=== PATIENT | male | born 1955 | race Caucasian/White ===

== ENCOUNTER 2018-02-10 15:00 | Outpatient (CLI) | payer BC ==
[~2018-02-10] VITALS: Ht 190.5 cm; Wt 122.5 kg
== END 2018-02-10 15:17 ==
LOC: PREOP 15:00
PROVIDERS: ATTEND Internal Medicine
DX: Z01.818 Encounter for other preprocedural examination (principal); Z86.010 Personal history of colon polyps

== ENCOUNTER 2018-02-14 08:15 | Day surgery (SDC) | payer BC ==
--- NOTE | 2018-02-04 12:35 | HISTORY AND PHYSICAL ---
DATE OF SERVICE: 02/14/2018 COLONOSCOPY HISTORY AND PHYSICAL REFERRING PHYSICIAN: Jorje Perez DO. ADDENDUM: DATE OF OFFICE CONSULTATION: 02/03/2018 HISTORY OF PRESENT ILLNESS: The patient is a 62-year-old white male, referred for surveillance colonoscopy. He has a past history of adenomatous colonic polyps and on his last colonoscopy in 05/2013, he had one tubular adenoma removed from the sigmoid colon. Five years previous to that, he had a villous adenoma removed from the ileocecal valve and has had several other tubular adenomas removed. He is deemed to be of higher than average risk as mother was diagnosed with colon cancer in her 70s and had two cousins also diagnosed with colon cancer in their 60s and 70s. He reports that he did have an episode roughly three weeks ago after a fatty meal dining out, where he noted bilateral upper quadrant abdominal discomfort with significant distention and constipation. He denied back radiation of pain. He ultimately had to utilize magnesium citrate to get results after about 3 days. He denied the passage of initial hard stool and had slow resolution of his abdominal discomforts. He has noted no blood in the stool bright red or melanotic. He denied jaundice or orange-colored urine. PAST MEDICAL HISTORY: Otherwise noncontributory. MEDICATIONS: He takes p.r.n. indomethacin for intermittent arthritis and is on no regular medication. FAMILY HISTORY: Other than the aforementioned colon cancer, is also notable for cholecystitis in his father, who actually succumbed to complications of the disease at the age of 89. Dad also had a history of coronary artery disease, underwent bypass surgery reportedly around age 63. SOCIAL HISTORY: He is employed, with adult children. He denies past smoking with a history of social alcohol intake. PAST SURGICAL HISTORY: He has had no past abdominal surgeries or joint replacement. PHYSICAL EXAMINATION: GENERAL: Reveals a pleasant overweight white male, in no acute distress at 298 pounds. His weight is up 13 pounds from 04/2013. VITAL SIGNS: Blood pressure 142/70, heart rate 72 and regular. HEENT: Unremarkable. Sclerae nonicteric. NECK: Revealed no JVD, adenopathy or bruits. CHEST: Clear. CARDIOVASCULAR: Regular rate and rhythm without murmur, S3 or S4. ABDOMEN: Soft, supple without mass, organomegaly or tenderness. Bowel sounds are positive in all four quadrants. No bruits are noted. EXTREMITIES: Reveal no cyanosis, clubbing or edema. ASSESSMENT AND PLAN: 1. Due to family history of colon cancer and past history of adenomatous colonic polyps, he was set up for surveillance colonoscopy on 02/14/2018. Prep instructions with the Wilhelm-prep kit were given and questions were answered. 2. Episode of abdominal pain with distention and bowel habit change. We discussed well as symptoms are classic for cholecystitis, he does have several risk factors. Advised cutting back on fast food, portion control and if he has another episode to return to Dr. Perez and discuss further workup consideration for abdominal sonogram and blood testing around the time of the attack. I thank you for the referral of this pleasant gentleman. Job ID: [id number] DocumentID: [id number] Dictated Date: 02/04/2018 12:11:27 Economic Developer Date: 02/04/2018 12:35:21 Dictated By: RENUKA JOHNS MD MTDD
[~2018-02-14] VITALS: Ht 190.5 cm; Wt 122.5 kg
[2018-02-14] MEDS ORDERED: D5 LR IV SOLUTION 1,000 ML IV STA (08:29)
[2018-02-14] MEDS ORDERED: MIDAZOLAM 2 MG/2 ML (VERSED) VIAL IVP PRN (08:30)
[2018-02-14] MEDS ORDERED: D5 LR IV SOLUTION 1,000 ML IV ONE (08:40)
[2018-02-14 08:50] VITALS: BP 130/84
[2018-02-14] MEDS ORDERED: LIDOCAINE JELLY 2% (XYLOCAINE) 5 ML TUBE ONE (10:20)
[2018-02-14] MEDS ORDERED: fentaNYL INJECTION 100 MCG/2 ML AMP ONE (10:21)
[2018-02-14] MEDS ORDERED: MIDAZOLAM 2 MG/2 ML (VERSED) VIAL ONE ×3 (10:21)
--- NOTE | 2018-02-14 10:30 | Pre-Op Note & Conscious Sedat ---
Pre-Operative Progress Note H&P Reviewed The H&P was reviewed, patient examined and no changes noted. Date H&P Reviewed: Feb 14, 2018 Time H&P Reviewed: 10:27 Conscious Sedation Pre-Proced ASA Class: 2 Airway Mallampati Classification: ([place] appropriate class) I. II. III, IV Lungs Heart ASA score ASA 1: a normal healthy patient ASA 2: a patient with a mild systemic disease (mid diabetes, controlled hypertension, obesity ASA 3: a patient with a severe systemic disease that limits activity (angina , COPD, prior Myocardial infarction) ASA 4: a patient with an incapacitating disease that is a constant threat to life (CHF, renal failure) ASA 5: a moribund patient not expected to survive 24 hrs. (ruptured aneurysm) ASA 6: a declared brain patient whose organs are being harvested. For emergent operations, add the letter E after the classification Grade 2 Sedation Plan: Analgesia, Amnesia, Plan communicated to team members, Discussed options with patient/fam, Discussed risks with patient/fam Note The patient is an appropriate candidate to undergo the planned procedure, sedation, and anesthesia. The patient immediately re-assessed prior to indication. RENUKA JOHNS MD Feb 14, 2018 10:30
[2018-02-14] MEDS: fentaNYL INJECTION 100 MCG/2 ML AMP IVP PRN ×2 (10:31→10:35)
[2018-02-14 11:20] VITALS: BP 138/86
[2018-02-14 11:50] VITALS: BP 132/81
[2018-02-14 12:07] VITALS: BP 132/81
--- NOTE | 2018-02-14 15:08 | OPERATIVE REPORT ---
DATE OF SERVICE: 02/14/2018 COLONOSCOPY INDICATION FOR THE PROCEDURE: Screening colon, past history of colonic polyps. DESCRIPTION OF PROCEDURE: The patient was placed in left lateral decubitus position. Digital rectal evaluation was performed. Anal sphincter tone was normal and the perianal reflex was intact. The prostate is anodular, mildly enlarged in size and nontender on digital inspection. No abnormalities with additional inspection of anal canal or distal rectal vault. The colonoscope was then inserted into the rectum under direct visualization advanced to the cecum. The cecum was identified by identification of the ileocecal valve and cecal strap. Photographic documentation was obtained. Careful inspection was made as colonoscope was withdrawn. FINDINGS: No evidence for internal or external hemorrhoids and the rectum was unremarkable. One diminutive proximal sigmoid polyp was noted. It was photographed and biopsied and ablated with no subsequent blood loss. No evidence for diverticular disease was noted. The descending colon was unremarkable. Present in the distal transverse colon was a diminutive 3 mm sessile polyp. It was photographed and biopsied and ablated with no subsequent blood loss. The remainder of the transverse colon, hepatic flexure, ascending colon and cecum were unremarkable. ASSESSMENT: 1. Digital rectal evaluation was compatible with mild benign prostatic hypertrophy. 2. Two diminutive sessile polyps were removed today via hot forceps with cauterization. One present in the proximal sigmoid and the other present in the distal transverse colon. As long as there are no surprise on histopathology report, I would advocate consideration for repeat screening colonoscopy in 5 years. I thank you for the referral of this pleasant gentleman. Job ID: [id number] DocumentID: [id number] Dictated Date: 02/14/2018 12:28:31 Nuclear Medicine Tech Date: 02/14/2018 15:07:34 Dictated By: RENUKA JOHNS MD [facility]
--- OUTSIDE RECORDS SUMMARY | 2018-02-16 06:59 | XMS REPORT | Continuity of Care Document ---
Author Author [facility] Organization [facility] Address Unknown Phone Unavailable Allergies Active Description Code Type Severity Reaction Onset Reported/Identified Relationship to Patient Clinical Status Yes No Known Drug Allergies [id number] Drug Allergy Unknown N/A 05/15/2013 Medications There is no data. Problems Date Dx Coded Attending Type Code Diagnosis Diagnosed By 05/15/2013 RENUKA JOHNS MD Ot 211.3 BENIGN NEOPLASM LG BOWEL 05/15/2013 RENUKA JOHNS MD Ot V12.72 PERSONAL HISTORY OF COLONIC POLYPS 05/15/2013 RENUKA JOHNS MD Ot V76.51 SCREEN MAL NEOP-COLON 02/12/2018 RENUKA JOHNS MD Ot Z01.818 ENCOUNTER FOR OTHER PREPROCEDURAL EXAMIN 02/12/2018 RENUKA JOHNS MD Ot Z86.010 PERSONAL HISTORY OF COLONIC POLYPS Procedures There is no data. Results There is no data. Encounters ACCT No. Visit Date/Time Discharge Status Pt. Type Provider Facility Loc./Unit Complaint [id number] 02/14/2018 08:15:00 02/14/2018 12:07:00 DIS Outpatient RENUKA JOHNS MD [facility] ENDO HX COLON POLYPS/ABD PAIN. [id number] 02/10/2018 15:00:00 02/10/2018 15:17:00 DIS Outpatient RENUKA JOHNS MD [facility] PREOP COLONOSCOPY [id number] 05/15/2013 07:02:00 05/15/2013 10:15:00 DIS Outpatient RENUKA JOHNS MD [facility] HISTORY OF POLYPS [id number] 05/13/2013 07:32:00 05/13/2013 23:59:59 CLS Outpatient
== END 2018-02-14 12:07 | disposition home or self-care (01) ==
LOC: ENDO 08:15
PROVIDERS: ATTEND Internal Medicine
DX: Z12.11 Encounter for screening for malignant neoplasm of colon (principal); K63.5 Polyp of colon; Z86.010 Personal history of colon polyps; Z80.0 Family history of malignant neoplasm of digestive organs
CPT/HCPCS: 88305

== ENCOUNTER 2023-06-10 09:48 | Outpatient (CLI) | payer BC ==
[~2023-06-10] VITALS: Ht 193 cm; Wt 141.0 kg
== END 2023-06-10 12:46 | disposition home or self-care (01) ==
LOC: PREOP 09:48
PROVIDERS: ATTEND Internal Medicine
DX: Z01.818 Encounter for other preprocedural examination (principal)

== ENCOUNTER 2023-06-14 09:01 | Day surgery (SDC) | payer BC ==
--- NOTE | 2023-06-11 09:03 | HISTORY AND PHYSICAL ---
COLONOSCOPY HISTORY AND PHYSICAL HISTORY OF PRESENT ILLNESS: The patient is a 67-year-old white male referred by Dr. Perez for surveillance colonoscopy due to past history of colon polyps. It has been a little over 5 years since his last colonoscopy, at which time he had hyperplastic polyp removed from the distal transverse colon and proximal sigmoid. He had no evidence for diverticular disease at that time. He reports that other than a left total knee replacement for osteoarthritis in January of this year, there have been no changes in his health history. In regards to further past medical history, he is being followed for an ascending aortic aneurysm, measured early this year at 4.3 cm and stable without significant aortic insufficiency. He is taking no medication currently. FAMILY HISTORY: Mother at the age of 89, complications of obesity and had osteoarthritis. Dad at the age of 89 with a form of bile blockage, he did not believe that it was related to pancreatic cancer. No family history for colon cancer. PAST SURGICAL HISTORY: Significant for joint replacement of the left knee in January. He is on the schedule for right total knee replacement in early July. SOCIAL HISTORY: He is employed, with adult children. No past smoking history and social alcohol consumption history. PHYSICAL EXAMINATION: GENERAL: Reveals pleasant, overweight white male in no acute distress. VITAL SIGNS: Weight 310 pounds, up 12 pounds from his last office visit, little over 5 years ago. Blood pressure 130/84. HEENT: Unremarkable. Mallampati 3 oropharyngeal configuration. CHEST: Clear to auscultation. CARDIOVASCULAR: Reveals regular rate and rhythm without murmur, S3, or S4. ABDOMEN: Soft, supple without mass, organomegaly, or tenderness. EXTREMITIES: Reveal no cyanosis, clubbing or edema. Well-healed left total knee replacement scar. ASSESSMENT AND PLAN: The patient is being set up for surveillance colonoscopy due to past history of colon polyps. His body habitus and oropharyngeal configuration put him at risk for sleep apnea. We will be monitoring for this during the sedation part of the procedure. Prep instructions were given and questions were answered. The patient requested the procedure be done at [facility] where he had previous colonoscopy is also important that we get this done prior to his knee replacement. I was unable to get him scheduled at [place] until mid-July, after his scheduled knee replacement. I thank you for the referral of this pleasant gentleman. Job ID: [id number] DocumentID: [id number] Dictated Date: 06/06/2023 16:56:04 Developer Evangelist Date: 06/06/2023 17:40:00 Dictated By: RENUKA JOHNS MD MTDD
[~2023-06-14] VITALS: Ht 193 cm; Wt 141.0 kg
[2023-06-14] MEDS ORDERED: LACTATED RINGERS 1,000 ML IV STA (09:09)
--- NOTE | 2023-06-14 09:27 | Pre-Op Note & Conscious Sedat ---
Pre-Operative Progress Note Date H&P Reviewed: Jun 14, 2023 Time H&P Reviewed: 09:26 History & Physical: H&P Reviewed, Patient Examed, No changes noted Pre-Op Diagnosis: Hx of colon polyps Moderate Sedation PreProcedure ASA Score 2 Airway Lungs Heart ASA score ASA 1: a normal healthy patient ASA 2: a patient with a mild systemic disease (mid diabetes, controlled hypertension, obesity ASA 3: a patient with a severe systemic disease that limits activity (angina, COPD, prior Myocardial infarction) ASA 4: a patient with an incapacitating disease that is a constant threat to life (CHF, renal failure) ASA 5: a moribund patient not expected to survive 24 hrs. (ruptured aneurysm) ASA 6: a declared brain- patient whose organs are being harvested. For emergent operations, add the letter E after the classification Mallampati Classification Grade 2 Sedation Plan Analgesia, Amnesia, Plan communicated to team members, Discussed options with patient/fam, Discussed risks with patient/fam The patient is an appropriate candidate to undergo the planned procedure, sedation, and anesthesia. The patient immediately re-assessed prior to indication. RENUKA JOHNS MD Jun 14, 2023 09:27
[2023-06-14 09:28] VITALS: BP 141/85
[2023-06-14] MEDS ORDERED: PROPOFOL INJECTION 0 ML IV ONE (09:53)
[2023-06-14] MEDS ORDERED: PROPOFOL INJECTION 50 ML IV ONE (10:10)
[2023-06-14] MEDS ORDERED: proPOfol 200 MG/20 ML (DIPRIVAN) VIAL IV ONE (10:23)
--- NOTE | 2023-06-14 10:37 | Anesthesia-General Post-Op ---
MAC Patient Condition Mental Status/LOC: Same as Preop Cardiovascular: Satisfactory Nausea/Vomiting: Absent Respiratory: Satisfactory Pain: Controlled Complications: Absent Post Op Complications Complications None Follow Up Care/Instructions Patient Instructions None needed. Anesthesiology Discharge Order Discharge Order Patient is doing well, no complaints, stable vital signs, no apparent adverse anesthesia problems. No complications reported per nursing. EDELMIRA CRUZ CRNA Jun 14, 2023 10:37
[2023-06-14 10:40] VITALS: BP 122/86
[2023-06-14 10:45] VITALS: BP 127/89
[2023-06-14 11:15] VITALS: BP 127/89
--- NOTE | 2023-06-14 11:28 | Progress Note-Post Operative ---
Post-Procedure Note Physician (s)/Emergency Room Clerk (s) Physician RENUKA JOHNS MD Pre-Procedure Diagnosis Pre-Procedure Diagnosis: Hx of colon polyps Post-Procedure Diagnosis Post-operative diagnosis: Prior to undergoing colonoscopy digital rectal evaluation was performed. Anal sphincter tone was normal and the perianal reflexes intact. Prostate was unremarkable on digital inspection as well as the anal canal and distal rectal vault. The colonoscope was then inserted into the rectum and under direct visualization advanced to the cecum. The cecum was identified by the indication of the ileocecal valve and cecal strap. Photographic documentation was obtained. A careful inspection was made as the colonoscope was withdrawn. Quality the prep was good. Findings: There are no evidence for internal or external hemorrhoids and the rectum was unremarkable. The patient does have a perianal papilloma without evidence for trauma. The sigmoid colon revealed 1 small diverticulum without evidence of diverticulitis. The the descending colon was unremarkable. Present in the distal transverse colon were 2 adjacent 4 mm sessile hyperplastic appearing polyps were biopsied and ablated with no blood loss. A similar polyp was noted in the mid transverse colon which was biopsied and ablated as well. An adenomatous appearing 4 mm polyp was noted on the upper lip of the ileocecal valve it was photographed and biopsied and ablated with no subsequent blood loss. The cecum was unremarkable. A/P 1. 4 polyps were removed today as noted above small in 4 to 5 mm range. As long as there are no surprises on histopathology report would advocate consideration for repeat surveillance colonoscopy in 5 years. 2. Patient did have obstructive breathing requiring an oral airway on his side would expect obstruction to be even worse had he been on his back. Would advocate sleep study to evaluate for underlying obstructive sleep apnea. I thank you for the furl this pleasant gentleman sincerely Renuka Johns MD, FACP. CC: Dr. Jorje Perez DO. RENUKA JOHNS MD Jun 14, 2023 11:28
[2023-06-14 11:40] VITALS: BP 127/89
== END 2023-06-14 11:40 | disposition home or self-care (01) ==
LOC: ENDO 09:01
PROVIDERS: ATTEND Internal Medicine
DX: Z12.11 Encounter for screening for malignant neoplasm of colon (principal); D12.0 Benign neoplasm of cecum; D12.3 Benign neoplasm of transverse colon; K57.30 Diverticulosis of large intestine without perforation or abscess without bleeding; E66.01 Morbid (severe) obesity due to excess calories; Z87.891 Personal history of nicotine dependence; Z68.37 Body mass index [BMI] 37.0-37.9, adult
CPT/HCPCS: 88305